=== PATIENT | female | born 1980 | race Caucasian/White ===

== ENCOUNTER 2018-01-20 15:36 | Inpatient (IN) | payer OTHER, SELFPAY ==
[~2018-01-20 15:36] MED LIST: Dexamethasone 20 MG/5 ML VIAL ONE; ISOVUE-370 76%-LOCM 1 ML ONE; Ketorolac Tromethamine 30 MG/ML VIAL ONE; Ondansetron HCl/PF 4 MG/2 ML Vial ONE; PROPOFOL 200 MG/20 ML VIAL ONE; Succinylcholine Chloride 20 MG/ML 10 ml SYRINGE FS ONE
[2018-01-20] MEDS ORDERED: Piperacillin/Tazobactam 4.5 GM VIAL ONE ×2 (16:06→16:22)
[2018-01-20] MEDS ORDERED: Ondansetron HCl/PF 4 MG/2 ML Vial ONE ×3 (16:06→20:20)
[2018-01-20] MEDS ORDERED: Morphine 4 MG/ML VIAL ONE ×3 (16:06→19:34)
[2018-01-20] MEDS ORDERED: Sodium Chloride 0.9% 100 ML ONE (16:06)
[2018-01-20 16:24] LABS: BHCG - Serum Negative (NEGATIVE); Pregs Control Background? CLEAR/WHITE (CLR/WHITE); Pregs Control Bar Appear? YES (CONTROL BAR)
[2018-01-20 16:25] LABS: #Lymphocytes 0.5 thou/uL (1.20-3.40); #Monocytes 0.2 thou/uL (0.11-0.59); %Basophils 0.4 % (0.0-1.0); %Eosinophils 0.3 % (0.0-10.0); %Neutrophils 90.3 % (42.0-75.0); Hemoglobin 17.5 g/dL (12.0-16.0); Mean Corpuscular HGB CONC 35.5 g/dL (32.0-36.0); Mean Corpuscular Hemoglobin 30.9 pg (27.0-31.0); Mean Corpuscular Volume 87.2 fL (78.0-98.0); Mean Platelet Volume 7.8 fL (7.4-10.4); Platelet Count 113 thou/uL (130-400); Red Blood Cell (RBC) Count 5.66 mill/uL (4.20-5.40); White Blood Cell (WBC) Count 7.7 thou/uL (4.8-10.8)
[2018-01-20 16:34] LABS: ALT (SGPT) 147 U/L (8-55); AST (SGOT) 166 U/L (5-34); Albumin 3.7 g/dL (3.5-5.0); Alkaline Phosphatase 114 U/L (40-150); Anion Gap 21 mmol/L (10-20); BUN (Urea Nitrogen) 12 mg/dL (7.0-18.7); Calc. Creatinine Clearance 0 mL/min (70-130); Carbon Dioxide 16 mmol/L (22-29); Chloride 92 mmol/L (98-107); Estimated GFR-MDRD 77; Globulin 3.6 g/dL (2.4-3.5); Glucose 321 mg/dL (70-105); Protein, Total 7.3 g/dL (6.0-8.3); Sodium 125 mmol/L (136-145)
[2018-01-20 16:35] LABS: PLT Morphology Comment Appears Decreased; RBC Morphology Normal
[2018-01-20 17:49] LABS: Bilirubin Negative (Negative); Blood, Urine Negative (Negative); Clarity CLEAR (Clear); Glucose, Urine (Dipstick) >=1000 mg/dL (Negative); Leukocyte Negative (Negative); Nitrite Negative (Negative); Protein, Urine (Dipstick) Negative (Neg-Trace); Specific Gravity, Urine 1.031 (1.002-1.036); pH, Urine 5.5 (5.0-9.0)
[2018-01-20 18:03] LABS: Pregnancy Test - Urine (BHCG) Negative (Negative); Pregu Control Background? CLEAR/WHITE (CLR/WHITE); Pregu Control Bar Appear? YES (CONTROL BAR); Specific Gravity 1.031 (1.002-1.036)
--- NOTE | 2018-01-20 18:37 | ULT ---
PELVIC ULTRASOUND: 01/20/18 HISTORY: Evaluate for retained products of conception. Patient had miscarriage two months ago. Heavy bleeding. Multiple longitudinal and transverse images of the pelvis is obtained using a multihertz curvilinear transducer. Real time, color flow images demonstrate the uterus to be of normal contour, axis and siz e measuring 9.6 x 4.8 x 5.3 cm. The endometrium is seen measuring 2.0 cm in thickness. No evidence o f significant fluid seen. No evidence of free pelvic fluid seen. The right and left ovary is not visu alized. Endovaginal sonography was not ordered per Dr. Nina. IMPRESSION: Thickened endometrium. No significant amount of free pelvic fluid seen. The right and left ovaries no t visualized and a vaginal sonography was not performed. POS: FRANKI
[2018-01-20 19:58] LABS: Base Excess-Venous -6.8 mmol/L (0 (+/- 2.5)); Bicarbonate (HCO3v) 15.7 mmol/L (1.0-85.0); CO2 Tension (PvCO2) 24.1 mmHg (41.0-51.0); Calcium, Ionized 0.98 mmol/L (1.12-1.32); Hemoglobin - Calc 14.2 g/dL (12.0-18.0); Potassium 3.7 mmol/L (3.4-4.7); T. Carbon Dioxide 16.5 mmol/L (1.0-85.0); pH (Venous) 7.422 (7.35-7.45); vO2 Saturation-calc 93.4 % (94-98)
[2018-01-20] MEDS ORDERED: Insulin Regular 300 UNITS/3 ML VIAL ONE (20:04)
--- NOTE | 2018-01-20 20:12 | CT ---
CT OF THE ABDOMEN AND PELVIS WITH IV CONTRAST: 01/20/18 INDICATION: Vaginal bleeding and clots with suprapubic abdominal pain. History of miscarriage two months ago. FINDINGS: There is a heterogeneously enhancing mass within the right uterine fundus with low density fluid in t he endometrial canal. There is peripherally enhancing lesion involving the right adnexa suspicious fo r an involuting follicle. This measures approximately 1.2 cm. No visible mass is evident on the terence rison transabdominal pelvic ultrasound; however, transvaginal examination was not performed. Detail i s limited on that study. No free fluid is evident. There is a mild amount of retained stool within the colon. There is a normal appendix in the right lo wer quadrant. The spleen is mildly enlarged measuring 14.4 cm. The kidneys, adrenal glands and pancreas are unremar kable. No acute osseous abnormality is evident. IMPRESSION: 1. Hypodense heterogeneous mass involving the right uterine fundus. This can be seen with retain ed products of conception. Recommend consideration for a repeat pelvic ultrasound but with a transvag inal evaluation to evaluate for any endometrial debris within the right fundal endometrial canal. 2. No free fluid is demonstrated. 3. Other findings as above. POS: FRANKI
[2018-01-20 20:16] LABS: Lactic Acid 1.3 mmol/L (0.5-2.2)
[2018-01-20] MEDS ORDERED: Doxycycline Hyclate 200 MG in Sodium Chloride 0.9% 250 ML 250 ML IVPB SCH (20:45)
--- NOTE | 2018-01-20 20:52 | HP ---
CHIEF COMPLAINT: Vaginal bleeding, abdominal pain, and fever. HISTORY OF PRESENT ILLNESS: This is a 37-year-old G3, P1-0-2-1, who is status post a miscarriage approximately 2 weeks ago. She reports that she started bleeding about 8 weeks ago and finally passed tissue and heavy clot and clots about 2 weeks ago. She stopped bleeding completely and then started bleeding again yesterday. She has not been seen for this . She reports significant cramping today as well as fever up to 103 in the emergency department. She has been nauseated with vomiting every time she eats and has been unable to keep anything down for the last few days. She denies any pain with urination, diarrhea, URI complaints. REVIEW OF SYSTEMS: Negative for head, eyes, ears, nose, throat, cardiovascular , respiratory, GI, , neuro, psych, musculoskeletal, skin or constitutional symptoms other than mentioned above. PAST MEDICAL HISTORY: Type 2 diabetes. PAST SURGICAL HISTORY: x1. OB HISTORY: One prior term 9 years ago followed by 2 miscarriages, including the most recent one. MEDICATIONS: Novolin 70/30, 30 units twice a day. ALLERGIES: No known drug allergies. SOCIAL HISTORY: Positive for tobacco use of approximately half a pack per day. Denies alcohol use, admit to marijuana use. 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 FAMILY HISTORY: Significant for breast and ovarian cancer in her grandmother and aunt. PHYSICAL EXAMINATION: VITAL SIGNS: Tachycardic in the 120s and febrile to 103 upon presentation, normotensive. GENERAL: Awake, alert, in no acute distress, but appears ill. CHEST: Nonlabored. ABDOMEN: Soft, obese, tender to palpation of the lower quadrants, no guarding or rebound. LABORATORY DATA: WBC 7.7, hemoglobin 17.5, hematocrit 49.4, platelets 113,000. Neutrophils 90.3 percent. Chemistry showed multiple abnormalities including electrolytes and liver function, glucose 321. Lactic acid 3.4, now down to 1.3 ; AST 166; ALT 147. Urine positive for over 1000 of glucose and ketones. IMAGING: A transvaginal ultrasound with what appears to be retained POCs with a thickened heterogeneous appearance to endometrium with hypervascularity. ASSESSMENT AND PLAN: Patient will be taken to the operating room for a suction D and C to remove the retained POC. She will then be admitted to the medicine service for further management of her lab abnormalities and sepsis. SHAYLA
[2018-01-20] MEDS ORDERED: Fentanyl 100 MCG/2 ML VIAL ONE (21:48)
[2018-01-20] MEDS ORDERED: Promethazine HCl 25 MG/ML VIAL SLOW IVP PRN (22:15)
[2018-01-20] MEDS ORDERED: Promethazine HCl 25 MG/ML VIAL IM PRN (22:15)
[2018-01-20] MEDS ORDERED: Ondansetron HCl/PF 4 MG/2 ML Vial IVP PRN ×2 (22:15→22:19)
[2018-01-20] MEDS ORDERED: Ondansetron ODT 4 MG TAB SL PRN (22:19)
[2018-01-20] MEDS ORDERED: Acetaminophen 325 MG TAB PO PRN (22:19)
[2018-01-20] MEDS ORDERED: Morphine 4 MG/ML VIAL SLOW IVP PRN (22:21)
[2018-01-20] MEDS: Sodium Chloride 0.9% 1,000 ML IV SCH (22:50)
[2018-01-20 22:55] LABS: Actual Bicarbonate (HCO3v) 17 mEq/L (22-28); Base Excess -6.9 mEq/L (-2.0 to +3.0); Calcium, Ionized 0.97 mmol/L (1.16-1.32); Chloride (ABG LAB) 103 mmol/L (98-106); Potassium - ABG Lab 3.72 mmol/L (3.70-5.30); Sodium 129.7 mmol/L (133-146); pH (venous) 7.36 (7.32-7.43)
--- NOTE | 2018-01-20 22:57 | ULT ---
TRANSVAGINAL PELVIC ULTRASOUND: 01/20/18 INDICATION: Concern for retained products of conception after miscarriage with heavy vaginal bleeding, sepsis and fever. COMPARISON: CT of the abdomen and pelvis dated 01/20/18 and a transabdominal pelvic ultrasound dated 01/20/18. FINDINGS: The uterus measures 8.0 x 4 x 4.8 cm. There is increase vascularized soft tissue seen near the region of the right aspect of the fundus corresponding to the area of oval hypodensity on the comparison CT . The right ovary measures 4.3 x 2.2 x 3.7 cm. The left ovary measures 3.5 x 1.6 x 2.2 cm. There is nor mal flow to both ovaries. IMPRESSION: Vascularized soft tissue seen within the right aspect of the fundal endometrium likely corresponding to the peripherally enhancing hypodense collection seen within the right fundus on the CT examination . Majority of this appears to be subendometrial in location but component does appear to project into the endometrial canal. An area of retained products of conception is of concern, OB-BIOLOGY MANAGER consultation and consideration for hysteroscopy would be helpful. POS: FRANKI
[2018-01-21 00:31] VITALS: BMI 28.7
[2018-01-21] MEDS ORDERED: Dextrose 50% Abboject 50 ML SYRINGE SLOW IVP PRN (01:54)
[2018-01-21] MEDS ORDERED: Dextrose 5% in Water 1,000 ML IV PRN (01:54)
--- NOTE | 2018-01-21 02:55 | OP ---
DATE OF SERVICE: 01/20/2018 PREOPERATIVE DIAGNOSES: 1. Retained products of conception. 2. Sepsis. POSTPROCEDURE DIAGNOSES: 1. Retained products of conception. 2. Sepsis. PROCEDURE: Suction D&C. SURGEON: Coral Flores M.D. PHARMACY TECHNICIAN INSTRUCTOR: Justina Morse. ANESTHESIA: General endotracheal. COMPLICATIONS: None. ESTIMATED BLOOD LOSS: 100 mL DESCRIPTION OF PROCEDURE: Patient was taken to the operating room where general anesthesia was obtai candy without difficulty. She was prepared and draped in normal sterile fashion in the dorsal lithotom y position with high leg holders. The bladder was drained approximately 700 mL of urine with in and out catheterization. A speculum was placed in the vagina and the cervix was grasped with a single to oth tenaculum. The uterus was sounded to 11 cm and the cervix was serially dilated. An 8-mm suction curet was advanced to the fundus and a suction curettage was performed. This was followed by sharp curettage until a gritty texture was noted throughout. Another suction curettage was performed to ev acuate the remaining contents. The tenaculum was removed and good hemostasis was noted. The speculu m was removed from the vagina. The patient tolerated the procedure well. Sponge, lap, and needle co unts were correct x2. The patient was taken to recovery room in stable condition.
[2018-01-21 04:57] LABS: #Lymphocytes 0.3 thou/uL (1.20-3.40); #Monocytes 0.1 thou/uL (0.11-0.59); #Neutrophils 3.7 thou/uL (1.40-6.50); %Basophils 0.3 % (0.0-1.0); %Eosinophils 0.1 % (0.0-10.0); %Lymphocytes 6.3 % (21.0-51.0); %Monocytes 2.2 % (0.0-10.0); Hemoglobin 13.3 g/dL (12.0-16.0); Mean Corpuscular HGB CONC 35.5 g/dL (32.0-36.0); Mean Corpuscular Hemoglobin 31.5 pg (27.0-31.0); Mean Corpuscular Volume 88.8 fL (78.0-98.0); Mean Platelet Volume 7.6 fL (7.4-10.4); Platelet Count 87 thou/uL (130-400); RBC Distribution Width 11.8 % (11.5-14.5); Red Blood Cell (RBC) Count 4.24 mill/uL (4.20-5.40); White Blood Cell (WBC) Count 4.1 thou/uL (4.8-10.8)
[2018-01-21 04:59] LABS: INR-International Normal Ratio 1.5; PTT 32.3 SEC (22.9-36.1); Prothrombin Time 17.7 SEC (12.0-14.7)
[2018-01-21 05:03] LABS: Fibrinogen 151 mg/dL (253-463)
[2018-01-21 05:14] LABS: Anion Gap 13 mmol/L (10-20); BUN (Urea Nitrogen) 13 mg/dL (7.0-18.7); Calc. Creatinine Clearance 164 mL/min (70-130); Calcium 7.6 mg/dL (7.8-10.44); Carbon Dioxide 16 mmol/L (22-29); Chloride 105 mmol/L (98-107); Estimated GFR-MDRD Greater than 90; Glucose 274 mg/dL (70-105); Potassium 4.3 mmol/L (3.5-5.1); Sodium 130 mmol/L (136-145)
[2018-01-21 05:23] LABS: FSP-Qualitative Normal (Normal)
[2018-01-21] MEDS: HumaLOG 300 UNITS/3 ML VIAL SC PRN ×2 (06:19→11:07)
[2018-01-21] MEDS: Sodium Chloride 0.9% 1,000 ML IV SCH (07:52)
--- NOTE | 2018-01-21 08:40 | CON ---
DATE OF CONSULTATION: 01/21/2018 REASON FOR CONSULTATION: Vaginal bleeding, abdominal pain, fever with a past medical history of diab etes mellitus type 2. CHIEF COMPLAINT: Vaginal bleeding, abdominal pain and fever. HISTORY OF PRESENT ILLNESS: This is a 37-year-old G3, P1, 0, 2, 1 who is status post miscarriage harriett roximately 2 weeks ago, reports with bleeding for 8 weeks and having heavy clots with associated symp toms of suprapubic pain and cramping. Patient's temperature has been up at 103 and patient is curren tly being evaluated in our hospital. At this point, we have been called to manage the patient's diab etes mellitus type 2. Patient denies any pain with urination, diarrhea, chest pain and palpitations. REVIEW OF SYSTEMS: Positive for vaginal bleed and suprapubic pain. Otherwise, as documented in the HPI, all other systems were reviewed and are negative. PAST MEDICAL HISTORY: Type 2 diabetes. PAST SURGICAL HISTORY: x1. OB HISTORY: Prior 9 years ago followed by 2 miscarriages including the most recent miscarr iage. CURRENT MEDICATIONS: Patient is on Novolin 70/30, 30 units b.i.d., gabapentin 300 mg and Seroquel 15 0 mg. ALLERGIES: No known drug allergies. FAMILY HISTORY: Significant for breast and ovarian cancer. SOCIAL HISTORY: Positive for tobacco use. Patient smokes half a pack per day. Denies any alcohol u se. Admits to marijuana use. PHYSICAL EXAMINATION: VITAL SIGNS: Blood pressure is 167/140, pulse of 142, respiratory rate of 30, temperature of 101.4, O2 sat of 100% on room air. GENERAL: The patient is lying in bed. Temperature of 101.4, tachycardic, hypertensive with some dis comfort. Otherwise, patient is alert and oriented x3. HEENT: Normocephalic and atraumatic. Pupils are equally round and reactive to light. Extraocular m ovements are intact. No scleral icterus. No conjunctival pallor. NECK: Trachea is midline. Full range of motion, supple. LUNGS: Clear to auscultation bilaterally. No wheezing, no rales, no rhonchi is appreciated. CARDIAC: Positive S1, S2. Patient is tachycardic. ABDOMEN: Obese abdomen, tender at suprapubic region, positive bowel sounds in all quadrants. No pul satile masses palpated. EXTREMITIES: A 5/5 upper extremity strength and 5/5 lower extremity strength with good pulses. NEUROLOGIC: Cranial nerves II-XII grossly intact. No neurologic deficits noted. SKIN: Warm, dry, and intact. IMAGING DATA: 1. A 12-lead EKG shows sinus tachycardia at a rate of 148. 2. Transvaginal ultrasound showed vascularized soft tissue seen within the right aspect of frontal e ndometrium, likely corresponding to the peripherally enhancing hypodense collection seen within the r ight fundus on the CT examination. Majority of this appears to be subendometrial in location by comp onent that appeared to project into the endometrial canal and area of retained products of conception is of concern. 3. CT abdomen and pelvis showed hypodense heterogenous mass involving the right uterine fundus. Thi s can be seen with retained products of conception. ED COURSE: The patient was given cefoxitin, IV doxycycline, IV ondansetron, IV morphine injection, N ovolin R 3 units and fluids and Zosyn. ASSESSMENT AND PLAN: This is a 37-year-old female presenting with sepsis due to retained products of conception. At this point, TECHNOLOGY COORDINATOR has seen the patient and is planning to take the patient for D&C. We have been consulted to manage the patient medically. At this point, we will start the patient o n her home medications. We will continue to follow the patient and we will monitor her very closely. We will send labs to rule out DIC.
[2018-01-21] MEDS ORDERED: Gabapentin 300 MG CAP PO SCH (09:00)
[2018-01-21] MEDS ORDERED: Insulin NPH/Reg Insulin Hm 300 UNITS/3 ML VIAL SC SCH (09:00)
[2018-01-21] MEDS ORDERED: Famotidine 20 MG TAB PO SCH (09:00)
[2018-01-21] MEDS ORDERED: Sodium Chloride 0.9% 1,000 ML IV SCH (09:30)
--- NOTE | 2018-01-21 09:30 | PDOC.PN ---
- Subjective Encounter Start Date: 01/21/18 Encounter Start Time: 09:28 Ms. Villa was seen today in follow-up of sepsis due to retained POC. She is s/ p D&C, and says she is feeling much better. - Objective Resuscitation Status: Resuscitation Status FULL:Full Resuscitation MAR Reviewed: Yes Vital Signs & Weight: Vital Signs (12 hours) Temp Pulse Resp BP Pulse Ox 01/21/18 07:42 96.9 F L 86 13 118/72 99 01/21/18 04:30 97.0 F L 85 15 105/70 98 01/21/18 00:24 98.7 F 100 20 129/83 98 Weight Weight 194 lb 5 oz Result Diagrams: 01/21/18 04:00 01/21/18 04:00 Additional Labs: Accuchecks 01/21/18 01/20/18 06:04 19:39 POC Glucose 256 H 210 H Phys Exam - Physical Examination HEENT: PERRLA Respiratory: no wheezing, no rales, no rhonchi, clear to auscultation bilateral Cardiovascular: RRR, no significant murmur, no rub no gallop Gastrointestinal: soft, non-tender, no distention, positive bowel sounds Musculoskeletal: no edema Dx/Plan (1) Hyponatremia Code(s): E87.1 - HYPO-OSMOLALITY AND HYPONATREMIA Status: Acute (2) Sepsis Code(s): A41.9 - SEPSIS, UNSPECIFIED ORGANISM Status: Acute (3) Diabetes mellitus type 2, controlled Code(s): E11.9 - TYPE 2 DIABETES MELLITUS WITHOUT COMPLICATIONS Status: Acute (4) Retained products of conception after miscarriage Code(s): O03.4 - INCOMPLETE SPONTANEOUS WITHOUT COMPLICATION Status: Acute - Plan * Hyponatremia- this is likely due to volume and sodium loss through vomiting- will check a urine sodium, and continue Saline infusion * DM- she has tolerated a solid diet- her long acting insulin has been re- started- and continue SSI * Elevated LFT-s- I suspect this was due to early sepsis - willr e-check, and see if this is improving * Retained POC- she is s/p D&C- possible home later if her serum sodium is improving, and LFT's .
[2018-01-21 10:51] LABS: ALT (SGPT) 115 U/L (8-55); AST (SGOT) 130 U/L (5-34); Alkaline Phosphatase 93 U/L (40-150); Bilirubin, Direct 0.6 mg/dL (0.1-0.3); Bilirubin, Total 1.2 mg/dL (0.2-1.2); Protein, Total 5.8 g/dL (6.0-8.3)
[2018-01-21 12:12] LABS: Anion Gap 15 mmol/L (10-20); BUN (Urea Nitrogen) 13 mg/dL (7.0-18.7); Calc. Creatinine Clearance 159 mL/min (70-130); Calcium 8.1 mg/dL (7.8-10.44); Carbon Dioxide 14 mmol/L (22-29); Chloride 105 mmol/L (98-107); Estimated GFR-MDRD Greater than 90; Glucose 273 mg/dL (70-105); Potassium 4.2 mmol/L (3.5-5.1); Sodium 130 mmol/L (136-145)
--- NOTE | 2018-01-21 12:59 | PDOC.EVN ---
Event Note - Event Note Event Note: OBGYN absorption plant operator Lab check: VP3 negative Blood culture NGTD RH pos path pending from the D&C
--- NOTE | 2018-01-21 13:52 | PDOC.FM ---
- Subjective Subjective: Patient doing well this AM. No significant overnight events. She states that she feels much better than yesterday. She states she is spotting a little, but not having any major vaginal bleeding. Bleeding is much improved from yesterday. Patient endorses some suprapubic pain when ambulating, but states it is better than yesterday. She has tolerated a diet. She states she is ready to go home today. - Objective MAR Reviewed: Yes Vital Signs & Weight: Vital Signs (12 hours) Temp Pulse Resp BP Pulse Ox 01/21/18 11:51 96.5 F L 102 H 18 133/95 H 99 01/21/18 07:42 96.9 F L 86 13 118/72 99 01/21/18 04:30 97.0 F L 85 15 105/70 98 Weight Weight 88.139 kg Result Diagrams: 01/21/18 04:00 01/21/18 10:20 EKG Reviewed by me: No Radiology Reviewed by me: Yes <Justina Morse - Last Filed: 01/21/18 14:49> - Objective Vital Signs & Weight: Weight Weight 194 lb 5 oz Result Diagrams: 01/21/18 04:00 01/21/18 10:20 <Coral Flores - Last Filed: 01/22/18 16:21> Phys Exam - Physical Examination Constitutional: NAD HEENT: sclera anicteric Neck: supple Cardiovascular: RRR Gastrointestinal: soft Mildly tender to palpation in suprapubic region Musculoskeletal: no edema, pulses present Neurological: non-focal Psychiatric: normal affect, A&O x 3 Skin: no rash, cap refill <2 seconds <Justina Morse - Last Filed: 01/21/18 14:49> Dx/Plan (1) Retained products of conception after miscarriage Code(s): O03.4 - INCOMPLETE SPONTANEOUS WITHOUT COMPLICATION Status: Resolved (2) Sepsis Code(s): A41.9 - SEPSIS, UNSPECIFIED ORGANISM Status: Resolved Plan: Sespsis 2/2 retained products of conception s/p suction D&C - Tachycardic in the 120's, Febrile to 103 F, lactic acidosis - Vaginal bleeding with recent history of miscarriage - s/p suction D&C on night of 01/20/2018 - Patient improved after D&C, afebrile, scant bleeding, BP stable - Patient receiving doxycycline. She received a dose of zosyn yesterday in ED. Will give 1 g of rocephin today - Plan to d/c home on doxycycline - From LARRY OPERATOR standpoint, stable Justina Morse, DO PGY-2 <Justina Morse - Last Filed: 01/21/18 14:49> Attending Addendum - Attending Addendum Date/Time: 01/22/18 [id number] I personally evaluated the patient and discussed the management with Dr. Palomino. I agree with the History, Examination, Assessment and Plan documented above. <Coral Flores - Last Filed: 01/22/18 16:21>
[2018-01-21] MEDS ORDERED: cefTRIAXone\\ROCEPHIN 1 GM in Sodium Chloride 0.9% 100 ML IVPB SCH (15:00)
[2018-01-21 15:27] VITALS: BP 113/73; TEMP 98.1
--- NOTE | 2018-01-21 15:56 | PDOC.EVN ---
Event Note - Event Note Event Note: DISCHARGE NOTE SUMMARY Admit date: 01/20 Discharge date: 01/21 Principal diagnosis 1 retained POC 2 uncontrolled diabetes 3 early sepsis principal procedure: 1 OB D&C (Mark/Lito) 2 General anesthesia Services involved 1. internal medicine 2. OBGYN 3. Anesthesia Narrative: Patient was admitted 01/20 diagnosed with possible septic retained products of conception consented for D&C by on-call team. IV antibiotics given and kept in ICU for observation for glycemic control. Patient cleared for discharger POD #1 (01/21) by Dr. Erwin. Home on 01/21 without over complications, no blood products given, last hemoglobin 13.0 Discharge medication: Doxicyclin x 7 days. Follow up: 1. family medicine, private practice 2. [facility] Patient seen on day of discharge by Dr. Finnegan and Dr. Morse, questions answered. Advised to not have intercorse until contraception is discussed at [facility].
--- NOTE | 2018-01-22 08:36 | EKG ---
Test Reason : CP Blood Pressure : / mmHG Vent. Rate : 148 BPM Atrial Rate : 148 BPM P-R Int : 130 ms QRS Dur : 070 ms QT Int : 278 ms P-R-T Axes : 068 044 058 degrees QTc Int : 436 ms Poor data quality, interpretation may be adversely affected Sinus tachycardia Otherwise normal ECG Confirmed by JULIANA SHELL ([id number]) on 01/22/2018 8:35:49 AM Referred By: Confirmed By:JULIANA SHELL
[2018-01-22 20:32] LABS: Chlamydia by PCR Not Detected (NotDetected); GC by PCR Not Detected (NotDetected)
== END 2018-01-21 17:17 | disposition home or self-care (01) | DRG 770 ==
LOC: ERS 15:36 → SDC/OP 21:01 → IMCU/EMU 22:22
PROVIDERS: ADMIT Obstetrics & Gynecology; ATTEND Obstetrics & Gynecology
PROC: 10D17ZZ Extraction of Products of Conception, Retained, Via Natural or Artificial Opening (ICD-10-PCS; principal; 2018-01-20)
DX: O03.37 Sepsis following incomplete spontaneous abortion (principal); A41.9 Sepsis, unspecified organism; O24.111 Pre-existing type 2 diabetes mellitus, in pregnancy, first trimester; E87.1 Hypo-osmolality and hyponatremia; O03.4 Incomplete spontaneous abortion without complication; E11.9 Type 2 diabetes mellitus without complications; Z3A.08 8 weeks gestation of pregnancy; Z79.4 Long term (current) use of insulin; O99.331 Smoking (tobacco) complicating pregnancy, first trimester; F17.210 Nicotine dependence, cigarettes, uncomplicated; O03.33 Metabolic disorder following incomplete spontaneous abortion
CPT/HCPCS: 36415; 36416; 51701; 74177; 76856; 80048; 80053; 80076; 81003; 81025; 82010; 82330; 82803; 82805; 83605; 84300; 84703; 85025; 85362; 85384; 85610; 85730; 86850; 86900; 86901; 87040; 87077; 87086; 87186; 87480; 87491; 87510; 87591; 87660; 88305; 90471; 90686; 90732; 93005; 96361; 96365; 96374; 96375; 96376; A4353; G0008; G0009; J0696; J1100; J1815; J1885; J2270; J2405; J2543; J2704; J3010; J7050; Q0162